=== PATIENT | male | born 1995 | race Two or more races ===

== ENCOUNTER 2021-05-07 01:33 | Emergency (ER) | payer SELFPAY ==
[~2021-05-07] VITALS: Ht 182.9 cm; Wt 77.1 kg
--- NOTE | 2021-05-07 01:36 | NUR ---
PT AAOX4. [employer] AND [employer]. C/O TOOK MUSHROOMS AND METH. PLACED IN BED 12 ON MONITOR AND PULSE OX. VSS.
--- NOTE | 2021-05-07 02:11 | NUR ---
Tripp aguilar in [facility] - 05/07/21 at 0229 by [email or web address] Ryan Joseph [phone], Patient's cousin.
--- NOTE | 2021-05-07 02:13 | NUR ---
Ryan Joseph [phone], Patient's cousin.
[2021-05-07] MEDS ORDERED: OLANZAPINE 10 MG VIAL IM ONE ×2 (02:14→02:30)
[2021-05-07 04:59] VITALS: BP 129/83
--- NOTE | 2021-05-07 04:59 | NUR ---
Patient discharged to home in stable condition. Written and verbal after care instructions given. Patient verbalizes understanding of instruction.
--- NOTE | 2021-05-07 04:59 | NUR ---
PATIENT AMBULATORY WITH A STEADY GAIT. PATIENT DENIES SI/HI. PATIENT IS ALERT AND ORIENTED x4. DENIES ANY PAIN.
== END 2021-05-07 05:00 | disposition home or self-care (01) ==
LOC: ER 01:40
DX: F19.10 Other psychoactive substance abuse, uncomplicated (principal)
CPT/HCPCS: J3490